=== PATIENT | male | born 1960 | race Caucasian/White ===

== ENCOUNTER → 2017-01-01 | Outpatient (CLI) | payer BC | LOC: RAD 09:46 | DX: Z09 Encounter for follow-up examination after completed treatment for conditions other than malignant neoplasm (principal); Z96.653 Presence of artificial knee joint, bilateral; M25.531 Pain in right wrist ==

== ENCOUNTER → 2017-05-22 | Outpatient (CLI) | payer BC | LOC: RAD 15:57 | DX: M46.96 Unspecified inflammatory spondylopathy, lumbar region (principal); M46.97 Unspecified inflammatory spondylopathy, lumbosacral region ==

== ENCOUNTER 2017-06-12 09:00 | Outpatient (RCR) | payer BC | END 2017-06-12 09:30 | disposition home or self-care (01) | LOC: PT 09:00 | DX: M54.5 Low back pain (principal) | CPT/HCPCS: G0283-GP ==

== ENCOUNTER → 2022-04-08 | Day surgery (SDC) | payer BC | LOC: MSO 07:45 | DX: D12.2 Benign neoplasm of ascending colon (principal) | CPT/HCPCS: 00811; J2704; J7120 ==

== ENCOUNTER → 2024-02-04 | Outpatient (CLI) | payer MEDICARE | LOC: LAB 13:23 | DX: R10.13 Epigastric pain (principal) ==